=== PATIENT | male | born 1955 | race Caucasian/White ===

== ENCOUNTER 2019-01-08 02:35 | Inpatient (IN) | payer OTHER ==
[~2019-01-08] VITALS: Ht 190.5 cm; Wt 105.8 kg
--- NOTE | 2019-01-08 02:50 | NUR ---
Pt c/o L sided cpx2 days w/ associated SOB. states recent pneumonia w/ similar s/s. denies any cardiac hx. all monitoring applied. md at bedside for assessment.
[2019-01-08] MEDS ORDERED: ASPIRIN 81 MG TABLET CHEW PO ONE (03:00)
[2019-01-08] MEDS ORDERED: SODIUM CHLORIDE FLUSH 10ML SYR IVF ONE (03:00)
[2019-01-08 03:09] LABS: BASOPHILS # (AUTO) 0.03 x10^3/uL (0-0.1); BASOPHILS % (AUTO) 0 % (0-1); EOSINOPHILS # (AUTO) 0.02 x10^3/uL (0-0.4); EOSINOPHILS % (AUTO) 0 % (1-7); LYMPHOCYTES # (AUTO) 1.67 x10^3/uL (1-3.4); LYMPHOCYTES % (AUTO) 16 % (22-44); MD NO; MEAN CORPUSCULAR HEMOGLOBIN 31.1 pg (27.5-34.5); MEAN CORPUSCULAR HGB CONC 35.1 g/dL (33.2-36.2); MEAN CORPUSCULAR VOLUME 88.7 fL (81-97); MEAN PLATELET VOLUME 6.7 fL (7.4-10.4); MONOCYTES # (AUTO) 0.87 x10^3/uL (0.2-0.8); MONOCYTES % (AUTO) 9 % (2-9); NEUTROPHILS % (AUTO) 75 % (42-75); PLATELET COUNT 181 x10^3/uL (130-400); RED BLOOD COUNT 4.76 x10^6/uL (4.38-5.82); RED CELL DISTRIBUTION WIDTH 13.9 % (9.4-14.8)
[2019-01-08 03:22] LABS: ALANINE AMINOTRANSFERASE 18 U/L (12-78); ALBUMIN 3.6 g/dL (3.4-5.0); ANION GAP 8 mmol/L (5-15); CALCIUM 8.3 mg/dL (8.5-10.1); CHLORIDE 109 mmol/L (98-107); CREATININE 1.08 mg/dL (0.7-1.3)
[2019-01-08] MEDS ORDERED: ASPIRIN 81 MG TABLET CHEW ONE (03:22)
[2019-01-08 03:26] LABS: ALKALINE PHOSPHATASE 89 U/L (45-117); BILIRUBIN,TOTAL 0.6 mg/dL (0.2-1.0); TROPONIN I < 0.015 ng/mL (0.000-0.045)
[2019-01-08 03:53] LABS: D-DIMER 4.43 ug/mlFEU (0.00-0.52); INTERNATIONAL NORMALIZED RATIO 1.04 (0.93-1.1); PROTHROMBIN TIME 10.9 Seconds (9.6-11.5)
[2019-01-08] MEDS ORDERED: OMNIPAQUE 350 MG/ML, 100ML BOTTLE ONE (04:29)
--- NOTE | 2019-01-08 05:06 | NUR ---
at bedside for recheck.
[2019-01-08] MEDS ORDERED: HEPARIN 5,000 UNITS/ML, 1ML ONE (05:24)
[2019-01-08] MEDS ORDERED: HEPARIN 25,000 UNITS/500ML PMX 500 ML ONE (05:24)
[2019-01-08] MEDS ORDERED: HEPARIN 5,000 UNITS/ML, 1ML IV ONE (05:30)
[2019-01-08] MEDS: HEPARIN 25,000 UNITS/500ML PMX 500 ML IV PRN (05:37)
[2019-01-08 06:22] VITALS: BP 151/87
[2019-01-08] MEDS ORDERED: hydrALAzine 20 MG/ML, 1ML IVPush PRN (09:30)
[2019-01-08] MEDS ORDERED: ACETAMINOPHEN 325 MG TABLET PO PRN (09:30)
[2019-01-08] MEDS ORDERED: LIDODERM 5% PATCH TD PRN (09:30)
[2019-01-08] MEDS ORDERED: DOCUSATE 100 MG CAPSULE PO PRN (09:30)
[2019-01-08] MEDS ORDERED: ONDANSETRON ODT 4 MG PO PRN (09:30)
[2019-01-08] MEDS ORDERED: GUAIFENESIN/DM 200-20MG, 10ML UDC PO PRN (09:30)
[2019-01-08] MEDS ORDERED: IBUPROFEN 600 MG TABLET PO PRN (09:30)
[2019-01-08 09:40] LABS: TROPONIN I < 0.015 ng/mL (0.000-0.045)
[2019-01-08] MEDS: LISINOPRIL 10 MG TABLET PO SCH (11:03)
[2019-01-08 11:57] LABS: TROPONIN I < 0.015 ng/mL (0.000-0.045)
[2019-01-08] MEDS: HEPARIN 5,000 UNITS/ML, 1ML IV PRN ×2 (12:05→18:27)
[2019-01-08 12:29] LABS: HEMOGLOBIN A1C 5.6 % (4.2-6.3)
[2019-01-08 13:15] VITALS: BP 136/74
[2019-01-08 19:25] VITALS: BP 127/76
[2019-01-09] MEDS: HEPARIN 25,000 UNITS/500ML PMX 500 ML IV PRN (01:23)
[2019-01-09] MEDS: HEPARIN 5,000 UNITS/ML, 1ML IV PRN (01:24)
[2019-01-09 01:28] VITALS: BP 117/69
[2019-01-09 07:30] VITALS: BP 144/74
[2019-01-09 07:38] LABS: CHOL/HDL RATIO 5.5; LDL/HDL RATIO 3.8 (0.5-3.0)
[2019-01-09] MEDS: LISINOPRIL 10 MG TABLET PO SCH (07:57)
[2019-01-09] MEDS ORDERED: LISI-167 PO (11:30)
[2019-01-09] MEDS ORDERED: RIVAROXABAN 15 MG TABLET PO SCH (11:30)
[2019-01-09] MEDS ORDERED: LIDO700A20 TD (11:30)
[2019-01-09] MEDS ORDERED: RIVA1TAB PO (11:30)
[2019-01-09] MEDS ORDERED: SIMV40TA3 PO (11:31)
[2019-01-09] MEDS ORDERED: RIVAROXABAN 20 MG TABLET ONE (11:44)
[2019-01-09 13:03] VITALS: BP 148/80
== END 2019-01-09 16:08 | disposition home or self-care (01) | DRG 176 ==
LOC: ED 03:28 → EDIP 05:15 → 5SO 06:14 → DCLOUNGE 01-09 15:40
PROVIDERS: ADMIT Family Medicine; ATTEND Family Medicine
DX: I26.99 Other pulmonary embolism without acute cor pulmonale (principal); J98.11 Atelectasis; R79.1 Abnormal coagulation profile; Z87.01 Personal history of pneumonia (recurrent); Z82.49 Family history of ischemic heart disease and other diseases of the circulatory system; Z83.6 Family history of other diseases of the respiratory system; Z82.3 Family history of stroke; R91.8 Other nonspecific abnormal finding of lung field
CPT/HCPCS: 36415; 71045; 71275; 80053; 80061; 83036; 83880; 84443; 84484; 85025; 85379; 85520; 85610; 85730; 93005; 93306; 93970; 99285; G0378; J1644; Q9967